=== PATIENT | female | born 1965 | race Asian ===

== ENCOUNTER → 2016-09-11 | Outpatient (CLI) | payer BC ==
[~2016-09-11] MED LIST: METH2.5T PO
[2016-09-11 08:31] LABS: BASOPHILS % 0.4 % (0.0-2.0); EOSINOPHILS % 1.4 % (0.0-5.0); HEMATOCRIT. 40.5 % (36.0-48.0); HEMOGLOBIN. 13.7 g/dL (12.0-16.0); LYMPHOCYTES % 30.4 % (20.0-50.0); MEAN CORPUSCULAR HEMOGLOBIN 32.4 pg (28.0-32.0); MEAN CORPUSCULAR HGB CONC 33.8 g/dL (31.0-37.0); MEAN CORPUSCULAR VOLUME 95.9 fL (81.0-99.0); MEAN PLATELET VOLUME 8.3 fl (7.4-10.4); MONOCYTES % 5.6 % (2.0-8.0); NEUTROPHILS % 62.2 % (40.0-76.0); PLATELET 215 x1000/uL (130-400); RED BLOOD CELL COUNT 4.22 mill/uL (4.2-5.4); RED CELL DISTRIBUTION WIDTH 13.8 % (11.6-14.6); WHITE BLOOD COUNT 3.7 x1000/uL (4.5-11.0)
[2016-09-11 09:16] LABS: ALANINE AMINOTRANSFERASE 17 IU/L (13-61); ALBUMIN 4.2 g/dL (3.4-5.0); ANION GAP 11; C REACTIVE PROTEIN QUANT 0.4 mg/L (0.0-3.0); CALCIUM 9.5 mg/dL (8.5-10.1); CARBON DIOXIDE 31 mEq/L (21-32); CHLORIDE 104 mEq/L (98-107); INDEX HEMOLYSI 1 (1-3); INDEX ICTERIC 1 (1-4); INDEX LIPEMIC 1 (1-3); UREA NITROGEN BLOOD 14 mg/dL (7-21); eGFR > 60 mL/min (>60)
[2016-09-11 12:28] LABS: CLARITY URINE CLEAR (CLEAR); COLOR URINE YELLOW (YELLOW); GLUCOSE URINE NEGATIVE (NEGATIVE); KETONES URINE NEGATIVE (NEGATIVE); LEUKOCYTE ESTERASE URINE NEGATIVE (NEGATIVE); NITRITE URINE NEGATIVE (NEGATIVE); OCCULT BLOOD URINE NEGATIVE (NEGATIVE); PH URINE 5.5 (4.5-8.0); PROTEIN URINE NEGATIVE (NEGATIVE); SPECIFIC GRAVITY URINE 1.009 (1.005-1.030); UROBILINOGEN URINE 0.2 E.U./dL (0.2-1.0)
[2016-09-11 14:32] LABS: RHEUMATOID FACTOR SCREEN POSITIVE (NEGATIVE)
== END | disposition home or self-care (01) ==
LOC: LAB 08:00
PROVIDERS: ATTEND Internal Medicine Geriatric Medicine
DX: M05.70 Rheumatoid arthritis with rheumatoid factor of unspecified site without organ or systems involvement (principal)
CPT/HCPCS: 36415; 80053; 81003; 82306; 83615; 85025; 85651; 86140; 86430

== ENCOUNTER → 2017-12-16 | Outpatient (CLI) | payer BC ==
[2017-12-16 14:26] LABS: BASOPHILS % 0.5 % (0.0-2.0); EOSINOPHILS % 1.8 % (0.0-5.0); HEMATOCRIT. 40.9 % (36.0-48.0); LYMPHOCYTES % 27.8 % (20.0-50.0); MEAN CORPUSCULAR HEMOGLOBIN 31.8 pg (28.0-32.0); MEAN CORPUSCULAR VOLUME 92.8 fL (81.0-99.0); MONOCYTES % 6.7 % (2.0-8.0); NEUTROPHILS % 63.2 % (40.0-76.0); PLATELET 243 x1000/uL (130-400); RED CELL DISTRIBUTION WIDTH 13.6 % (11.6-14.6)
[2017-12-16 14:29] LABS: CHLORIDE 106 mEq/L (98-107)
[2017-12-16 14:34] LABS: CLARITY URINE CLEAR (CLEAR); COLOR URINE YELLOW (YELLOW); KETONES URINE NEGATIVE (NEGATIVE); LEUKOCYTE ESTERASE URINE NEGATIVE (NEGATIVE); NITRITE URINE NEGATIVE (NEGATIVE); OCCULT BLOOD URINE NEGATIVE (NEGATIVE); PROTEIN URINE NEGATIVE (NEGATIVE); SPECIFIC GRAVITY URINE 1.018 (1.005-1.030); UROBILINOGEN URINE 0.2 E.U./dL (0.2-1.0)
[2017-12-16 14:36] LABS: C REACTIVE PROTEIN QUANT 0.5 mg/L (0.0-3.0); LDL CHOLESTEROL 113 mg/dL (5-100)
[2017-12-16 14:38] LABS: HDL CHOLESTEROL 57 mg/dL (40-59)
[2017-12-19 13:06] LABS: VITAMIN D 1-25 DIHYDROXY 64.1 pg/mL (19.9-79.3)
== END ==
LOC: LAB 13:44
PROVIDERS: ATTEND Internal Medicine
DX: Z00.01 Encounter for general adult medical examination with abnormal findings (principal); L03.011 Cellulitis of right finger; M05.70 Rheumatoid arthritis with rheumatoid factor of unspecified site without organ or systems involvement
CPT/HCPCS: 36415; 80053; 80061; 81003; 82652; 83036; 84443; 85025; 85651; 86140; 86200; 86431; 87070; 87186; 87205

== ENCOUNTER → 2018-01-13 | Outpatient (CLI) | payer BC | END | disposition home or self-care (01) | LOC: MAMMO 08:38 | PROVIDERS: ATTEND Pediatrics | DX: Z12.31 Encounter for screening mammogram for malignant neoplasm of breast (principal) | CPT/HCPCS: 77067 ==

== ENCOUNTER → 2019-02-26 | Outpatient (CLI) | payer BC ==
[2019-02-26 13:17] LABS: BASOPHILS % 0.6 % (0.0-2.0); EOSINOPHILS % 1.7 % (0.0-5.0); HEMATOCRIT. 40.5 % (36.0-48.0); HEMOGLOBIN. 13.8 g/dL (12.0-16.0); LYMPHOCYTES % 30.4 % (20.0-50.0); MEAN CORPUSCULAR HEMOGLOBIN 31.5 pg (28.0-32.0); MEAN CORPUSCULAR VOLUME 92.6 fL (81.0-99.0); MEAN PLATELET VOLUME 8.1 fl (7.4-10.4); MONOCYTES % 6.7 % (2.0-8.0); NEUTROPHILS % 60.6 % (40.0-76.0); PLATELET 221 x1000/uL (130-400); RED BLOOD CELL COUNT 4.38 mill/uL (4.2-5.4)
[2019-02-26 13:20] LABS: CLARITY URINE CLEAR (CLEAR); COLOR URINE YELLOW (YELLOW); KETONES URINE NEGATIVE (NEGATIVE); LEUKOCYTE ESTERASE URINE NEGATIVE (NEGATIVE); NITRITE URINE NEGATIVE (NEGATIVE); OCCULT BLOOD URINE NEGATIVE (NEGATIVE); PROTEIN URINE NEGATIVE (NEGATIVE); SPECIFIC GRAVITY URINE 1.007 (1.005-1.030); UROBILINOGEN URINE 0.2 E.U./dL (0.2-1.0)
[2019-02-26 13:26] LABS: CHLORIDE 108 mEq/L (98-107)
[2019-02-26 13:32] LABS: HDL CHOLESTEROL 58 mg/dL (40-59); LDL CHOLESTEROL 104 mg/dL (5-100)
[2019-02-26 13:33] LABS: TOTAL IRON BINDING CAPACITY 309 ug/dL (250-450)
[2019-02-26 13:54] LABS: VITAMIN B12 SERUM 736 pg/mL (211-911)
== END | disposition home or self-care (01) ==
LOC: LAB 12:13
PROVIDERS: ATTEND Internal Medicine Geriatric Medicine
DX: N39.0 Urinary tract infection, site not specified (principal)
CPT/HCPCS: 36415; 80061; 81003; 82306; 82607; 83540; 83550; 84443; 86592

== ENCOUNTER → 2019-03-24 | Outpatient (CLI) | payer BC | END | disposition home or self-care (01) | LOC: MAMMO 09:36 | PROVIDERS: ATTEND Internal Medicine Geriatric Medicine | DX: Z12.31 Encounter for screening mammogram for malignant neoplasm of breast (principal) | CPT/HCPCS: 77067 ==

== ENCOUNTER → 2022-10-24 | Outpatient (CLI) | payer BC ==
[2022-10-24 09:59] LABS: BASOPHILS % 0.6 % (0.0-2.0); EOSINOPHILS % 1.3 % (0.0-5.0); HEMATOCRIT. 38.9 % (36.0-48.0); HEMOGLOBIN. 13.5 g/dL (12.0-16.0); LYMPHOCYTES % 31.7 % (20.0-50.0); MEAN CORPUSCULAR HEMOGLOBIN 31.8 pg (28.0-32.0); MEAN CORPUSCULAR VOLUME 91.6 fL (81.0-99.0); MEAN PLATELET VOLUME 8.1 fl (7.4-10.4); MONOCYTES % 6.1 % (2.0-8.0); NEUTROPHILS % 60.3 % (40.0-76.0); PLATELET 254 x1000/uL (130-400); RED BLOOD CELL COUNT 4.24 mill/uL (4.2-5.4)
[2022-10-24 10:02] LABS: CLARITY URINE CLEAR (CLEAR); COLOR URINE YELLOW (YELLOW); KETONES URINE NEGATIVE (NEGATIVE); LEUKOCYTE ESTERASE URINE NEGATIVE (NEGATIVE); NITRITE URINE NEGATIVE (NEGATIVE); OCCULT BLOOD URINE TRACE (NEGATIVE); PH URINE 5.5 (4.5-8.0); PROTEIN URINE NEGATIVE (NEGATIVE); SPECIFIC GRAVITY URINE 1.008 (1.005-1.030); UROBILINOGEN URINE 0.2 E.U./dL (0.2-1.0)
[2022-10-24 10:24] LABS: CHLORIDE 107 mEq/L (98-107)
[2022-10-24 10:40] LABS: HDL CHOLESTEROL 53 mg/dL (40-59); LDL CHOLESTEROL 124 mg/dL (5-100)
[2022-10-26 09:10] LABS: VITAMIN D 25-OH 37.2 ng/mL (30.0-100.0)
[2022-10-26 13:06] LABS: ANTI-NUCLEAR ANTIBODIES DIRECT Positive (Negative)
== END | disposition home or self-care (01) ==
LOC: LAB 07:31
PROVIDERS: ATTEND Internal Medicine Nephrology
DX: Z00.00 Encounter for general adult medical examination without abnormal findings (principal); M06.9 Rheumatoid arthritis, unspecified
CPT/HCPCS: 36415; 80053; 80061; 81003; 82306; 83036; 84439; 84443; 85025; 85651; 86038; 86200

== ENCOUNTER → 2022-11-15 | Outpatient (CLI) | payer BC | END | disposition home or self-care (01) | LOC: MAMMO 07:26 | PROVIDERS: ATTEND Internal Medicine Nephrology | DX: Z12.31 Encounter for screening mammogram for malignant neoplasm of breast (principal) | CPT/HCPCS: 77067 ==

== ENCOUNTER → 2022-12-26 | Outpatient (CLI) | payer BC ==
[2022-12-26 15:03] LABS: BASOPHILS % 0.6 % (0.0-2.0); HEMATOCRIT. 39.8 % (36.0-48.0); HEMOGLOBIN. 13.6 g/dL (12.0-16.0); LYMPHOCYTES % 29.4 % (20.0-50.0); MEAN CORPUSCULAR HEMOGLOBIN 31.5 pg (28.0-32.0); MEAN CORPUSCULAR VOLUME 92.1 fL (81.0-99.0); MEAN PLATELET VOLUME 8.2 fl (7.4-10.4); MONOCYTES % 9.2 % (2.0-8.0); NEUTROPHILS % 58.8 % (40.0-76.0); PLATELET 250 x1000/uL (130-400); RED BLOOD CELL COUNT 4.32 mill/uL (4.2-5.4); RED CELL DISTRIBUTION WIDTH 13.5 % (11.6-14.6)
[2022-12-26 15:11] LABS: CHLORIDE 106 mEq/L (98-107)
[2022-12-26 15:18] LABS: C REACTIVE PROTEIN QUANT 5.2 mg/L (0.0-3.0)
[2022-12-26 18:39] LABS: HEPATITIS B SURFACE ANTIGEN NEGATIVE
[2022-12-27 12:54] LABS: RHEUMATOID FACTOR SCREEN POSITIVE (NEGATIVE)
[2022-12-28 09:06] LABS: QFT MITOGEN VALUE 0.16 IU/mL (.); QFT TB GOLD PLUS Indeterminate (Negative); QFT TB1 AG VALUE 0.02 IU/mL (.)
[2022-12-28 10:08] LABS: ANTI-DNA DOUBLE STRANDED QUANT 1 IU/mL (0-9); SMITH ABS < 0.2 AI (0.0-0.9)
[2022-12-30 19:08] LABS: ANA IFA Negative (.)
== END | disposition home or self-care (01) ==
LOC: LAB 07:50
PROVIDERS: ATTEND Internal Medicine
DX: Z11.7 Encounter for testing for latent tuberculosis infection (principal); R76.0 Raised antibody titer; M05.70 Rheumatoid arthritis with rheumatoid factor of unspecified site without organ or systems involvement; Z20.5 Contact with and (suspected) exposure to viral hepatitis
CPT/HCPCS: 36415; 80053; 85025; 86140; 86160; 86225; 86256; 86430; 86480; 86705; 86709; 86803; 87340

== ENCOUNTER → 2023-01-10 | Outpatient (CLI) | payer BC | END | disposition home or self-care (01) | LOC: LAB 08:34 | PROVIDERS: ATTEND Internal Medicine | DX: M06.9 Rheumatoid arthritis, unspecified (principal) | CPT/HCPCS: 71046; 73130; 73630 ==

== ENCOUNTER → 2023-06-20 | Outpatient (CLI) | payer BC ==
[2023-06-20 13:07] LABS: BASOPHILS % 0.3 % (0.0-2.0); EOSINOPHILS % 1.3 % (0.0-5.0); HEMATOCRIT. 40.5 % (36.0-48.0); LYMPHOCYTES % 28.9 % (20.0-50.0); MEAN CORPUSCULAR HEMOGLOBIN 31.4 pg (28.0-32.0); MEAN CORPUSCULAR HGB CONC 34.4 g/dL (31.0-37.0); MEAN CORPUSCULAR VOLUME 91.3 fL (81.0-99.0); MEAN PLATELET VOLUME 7.7 fl (7.4-10.4); MONOCYTES % 7.4 % (2.0-8.0); NEUTROPHILS % 62.1 % (40.0-76.0); PLATELET 246 x1000/uL (130-400); RED BLOOD CELL COUNT 4.44 mill/uL (4.2-5.4); RED CELL DISTRIBUTION WIDTH 14.2 % (11.6-14.6); WHITE BLOOD COUNT 5.3 x1000/uL (4.5-11.0)
[2023-06-20 13:26] LABS: ALANINE AMINOTRANSFERASE 15 IU/L (10-49); ALBUMIN 4.2 g/dL (3.2-4.8); ASPARTATE AMINOTRANSFERASE 22 IU/L (<34); BILIRUBIN TOTAL 0.7 mg/dL (0.1-1.0); C REACTIVE PROTEIN QUANT 0.6 mg/L (0.0-3.0); CALCIUM 9.5 mg/dL (8.7-10.4); CARBON DIOXIDE 33 mEq/L (21-32); CHLORIDE 104 mEq/L (98-107); CREATININE 0.7 mg/dL (0.6-1.0); GLUCOSE 89 mg/dL (70-105); POTASSIUM 4.1 mEq/L (3.5-5.1); SODIUM 139 mEq/L (136-145); UREA NITROGEN BLOOD 15 mg/dL (9-23)
[2023-06-20 14:04] LABS: ERYTHROCYTE SEDIMENTATION RATE 28 mm/hr (0-30)
== END | disposition home or self-care (01) ==
LOC: LAB 12:42
PROVIDERS: ATTEND Internal Medicine
DX: E87.6 Hypokalemia (principal); M05.70 Rheumatoid arthritis with rheumatoid factor of unspecified site without organ or systems involvement
CPT/HCPCS: 36415; 80053; 83735; 85025; 85651; 86140

== ENCOUNTER → 2025-05-17 | Outpatient (CLI) | payer BC ==
[2025-05-17 10:05] LABS: BASOPHILS % 0.6 % (0.0-2.0); EOSINOPHILS % 2.4 % (0.0-5.0); HEMATOCRIT. 39.0 % (36.0-48.0); HEMOGLOBIN. 13.1 g/dL (12.0-16.0); LYMPHOCYTES % 28.8 % (20.0-50.0); MEAN PLATELET VOLUME 8.5 fl (7.4-10.4); MONOCYTES % 6.4 % (2.0-8.0); NEUTROPHILS % 61.8 % (40.0-76.0); PLATELET 235 x1000/uL (130-400); RED BLOOD CELL COUNT 4.17 mill/uL (4.2-5.4); RED CELL DISTRIBUTION WIDTH 13.8 % (11.6-14.6)
[2025-05-17 10:29] LABS: CREATININE 0.8 mg/dL (0.6-1.0); TRIGLYCERIDE 89 mg/dL (0-150); UREA NITROGEN BLOOD 11 mg/dL (9-23)
[2025-05-17 10:30] LABS: LDL CHOLESTEROL 121 mg/dL (5-100)
[2025-05-17 10:31] LABS: ASPARTATE AMINOTRANSFERASE 26 IU/L (<34); BILIRUBIN TOTAL 0.7 mg/dL (0.1-1.0); PROTEIN TOTAL 7.3 g/dL (6.0-8.3)
[2025-05-17 11:36] LABS: CLARITY URINE CLEAR (CLEAR); COLOR URINE YELLOW (YELLOW); GLUCOSE URINE NEGATIVE (NEGATIVE); KETONES URINE NEGATIVE (NEGATIVE); LEUKOCYTE ESTERASE URINE NEGATIVE (NEGATIVE); NITRITE URINE NEGATIVE (NEGATIVE); OCCULT BLOOD URINE NEGATIVE (NEGATIVE); PH URINE 6.5 (4.5-8.0); PROTEIN URINE NEGATIVE (NEGATIVE); SPECIFIC GRAVITY URINE 1.006 (1.005-1.030); UROBILINOGEN URINE 0.2 E.U./dL (0.2-1.0)
== END | disposition home or self-care (01) ==
LOC: LAB 08:41
PROVIDERS: ATTEND Internal Medicine
DX: Z00.00 Encounter for general adult medical examination without abnormal findings (principal)
CPT/HCPCS: 36415; 80053; 80061; 81003; 82306; 83036; 84443; 85025